=== PATIENT | female | born 1970 | race Two or more races ===

== ENCOUNTER 2017-02-07 08:57 | Inpatient (IN) | payer OTHER ==
[~2017-02-07] VITALS: Ht 154.9 cm; Wt 74.5 kg
[2017-02-07] MEDS ORDERED: ACETAMINOPHEN 325 MG TAB PO ONE ×2 (09:06→09:15)
[2017-02-07] MEDS ORDERED: PANTOPRAZOLE 40 MG/10 ML VIAL IV STA (11:06)
[2017-02-07] MEDS ORDERED: SODIUM CHLORIDE 0.9% 1,000 ML IVB ONE (11:06)
[2017-02-07 11:09] LABS: Basophils # (auto) 0 uL; Basophils % (auto) 0.2 % (0.0-2.0); Eosinophils # (auto) 0 uL; Hematocrit 39.7 % (36.0-46.0); Hemoglobin 13.4 g/dL (12.2-16.2); Lymphocytes # (auto) 0.4 uL; Lymphocytes % (auto) 3.8 % (10.0-50.0); Mean Corpuscular Hgb Conc. 33.8 g/dL (32.0-36.0); Mean Corpuscular Volume 91.9 fL (80.0-100.0); Mean Platelet Volume 9.4 fL (7.4-10.4); Monocytes # (auto) 0.7 uL; Monocytes % (auto) 5.7 % (0.0-12.0); Neutrophils # (auto) 10.5 uL; Neutrophils % (auto) 90.3 % (37.0-80.0); Platelet Count (auto) 214 10^3/uL (140-450); Red Cell Distribution Width 13.5 % (11.6-16.0); White Blood Cell 11.6 10^3/uL (4.4-10.8)
[2017-02-07] MEDS ORDERED: ALUM & MAG HYDROX-SIMETH LIQ(MAALOX) 30 ML PO ONE (11:15)
[2017-02-07] MEDS ORDERED: LIDOCAINE VISCOUS 2% 15ML UD PO ONE (11:15)
[2017-02-07] MEDS ORDERED: MORPHINE SULFATE 4 MG/ML SYRG IV ONE (11:15)
[2017-02-07] MEDS ORDERED: ONDANSETRON HCL 4 MG/2 ML VIAL IV ONE (11:15)
[2017-02-07] MEDS ORDERED: DONNATAL 5ml ORAL Elix (BELLADONNA ALK-PHENOBARB) PO ONE (11:15)
[2017-02-07 11:37] LABS: Albumin 3.4 g/dL (3.4-5.0); BUN/Creatinine Ratio 14.1; Bilirubin, Total 0.9 mg/dL (0.2-1.0); Calcium 8.9 mg/dL (8.5-10.1); Potassium 3.3 mmol/L (3.5-5.1); Total Protein 8.1 g/dL (6.4-8.2)
[2017-02-07 11:38] LABS: Amylase 40 U/L (25-115)
[2017-02-07] MEDS ORDERED: POTASSIUM CHL 10% (20 MEQ/15ML) 15ml ORAL SOLN PO ONE (12:30)
[2017-02-07] MEDS ORDERED: PIPERACILLIN-TAZOB 3.375GM 100 ML IV ONE (12:30)
[2017-02-07 13:42] LABS: Urine Bilirubin Negative (Negative); Urine Blood 2+ /uL (Negative); Urine Color Yellow (Yellow); Urine Glucose 4+ mg/dL (Normal); Urine Ketone 2+ (Negative); Urine Mucus FEW (None Seen); Urine Nitrite Negative (Negative); Urine RBC 9 /hpf (0 - 4); Urine Squamous Epithelial Cell FEW /hpf (<5); Urine Urobilinogen Normal (Negative)
[2017-02-07] MEDS ORDERED: PROMETHAZINE HCL 25 MG/ML 1ML IV PRN (14:00)
[2017-02-07] MEDS ORDERED: cefTRIAXone 1GM/50ML D5W 50 ML IV ONE (14:00)
[2017-02-07] MEDS ORDERED: DEXTROSE (50%) 50ML SYRG IV PRN (14:00)
[2017-02-07] MEDS ORDERED: MORPHINE SULF INJ 2 MG/ML SYRINGE 1ML IV PRN ×2 (14:00→14:15)
[2017-02-07] MEDS ORDERED: LORazepam 0.5 MG TAB PO PRN (14:00)
[2017-02-07] MEDS ORDERED: NITROGLYCERIN 0.4 MG SL TAB SL PRN (14:00)
[2017-02-07] MEDS ORDERED: TEMAZEPAM 15 MG CAP PO PRN (14:00)
[2017-02-07] MEDS: ENOXAPARIN SOD 40 MG/0.4 ML SYRINGE SC SCH (14:30)
[2017-02-07] MEDS: FAMOTIDINE (10MG/ML) 2ML VL IV SCH (14:30)
[2017-02-07] MEDS: SODIUM CHLORIDE 0.9% 1,000 ML IV SCH (14:30)
[2017-02-07] MEDS: ACCU-CHEK COMFORT CURVE STRIP VI SCH ×3 (15:56→23:47)
[2017-02-07] MEDS: InsuLIN REG 1unit/0.01ml Soln (100units/ml) SC SCH ×3 (16:03→23:48)
[2017-02-07] MEDS: ACETAMINOPHEN 500 MG TAB PO PRN ×2 (17:12→23:40)
[2017-02-07] MEDS ORDERED: INSLANTI SC (18:14)
[2017-02-07] MEDS ORDERED: METF-370 PO (18:14)
[2017-02-07] MEDS ORDERED: AMLO5TAB2 PO (18:20)
[2017-02-07] MEDS ORDERED: LOVA20TA4 PO (18:20)
[2017-02-07 19:00] VITALS: BP 119/55
[2017-02-07 20:00] VITALS: BP 119/55
[2017-02-08] MEDS: SODIUM CHLORIDE 0.9% 1,000 ML IV SCH ×3 (00:29→19:52)
[2017-02-08] MEDS: FAMOTIDINE (10MG/ML) 2ML VL IV SCH ×2 (01:43→14:27)
[2017-02-08] MEDS: InsuLIN REG 1unit/0.01ml Soln (100units/ml) SC SCH ×5 (04:00→19:52)
[2017-02-08] MEDS: ACCU-CHEK COMFORT CURVE STRIP VI SCH ×5 (04:00→19:52)
[2017-02-08 04:46] VITALS: BP 109/55
[2017-02-08 05:30] LABS: Basophils # (auto) 0 uL; Basophils % (auto) 0.3 % (0.0-2.0); CONDITION Y; Eosinophils # (auto) 0 uL; Eosinophils % (auto) 0.1 % (0.0-7.0); Hematocrit 34.4 % (36.0-46.0); Hemoglobin 11.4 g/dL (12.2-16.2); Lymphocytes # (auto) 1.1 uL; Lymphocytes % (auto) 10.2 % (10.0-50.0); Mean Corpuscular Hemoglobin 30.9 pg (28.0-32.0); Mean Corpuscular Hgb Conc. 33.3 g/dL (32.0-36.0); Mean Corpuscular Volume 92.8 fL (80.0-100.0); Mean Platelet Volume 9.9 fL (7.4-10.4); Monocytes # (auto) 0.7 uL; Monocytes % (auto) 6.6 % (0.0-12.0); Neutrophils # (auto) 8.5 uL; Neutrophils % (auto) 82.8 % (37.0-80.0); Platelet Count (auto) 212 10^3/uL (140-450); Red Cell Distribution Width 13.6 % (11.6-16.0); White Blood Cell 10.3 10^3/uL (4.4-10.8)
[2017-02-08 06:18] LABS: Albumin 2.6 g/dL (3.4-5.0); BUN/Creatinine Ratio 11.8; Bilirubin, Total 0.6 mg/dL (0.2-1.0); Potassium 3.5 mmol/L (3.5-5.1); Total Protein 6.9 g/dL (6.4-8.2)
[2017-02-08 06:20] LABS: Amylase 35 U/L (25-115); Cholesterol 89 mg/dL (< 200); HDL Cholesterol 39 mg/dL (40-59); LDL Cholesterol 49 mg/dL (< 100); Triglycerides 81 mg/dL (< 150)
[2017-02-08] MEDS ORDERED: cefTRIAXone 1GM/50ML D5W 50 ML IV SCH (09:00)
[2017-02-08 09:20] VITALS: BP 121/53
[2017-02-08] MEDS: ACETAMINOPHEN 500 MG TAB PO PRN (09:27)
[2017-02-08] MEDS: ENOXAPARIN SOD 40 MG/0.4 ML SYRINGE SC SCH (09:27)
[2017-02-08] MEDS ORDERED: VANCOMYCIN 1GM/250ML D5W 250 ML IV ONE (10:30)
[2017-02-08] MEDS ORDERED: PIPERACILLIN-TAZOB 3.375GM 100 ML IV ONE (10:30)
[2017-02-08] MEDS ORDERED: VANCOMYCIN PER PHARMACY 0 MG IV SCH (10:30)
[2017-02-08] MEDS ORDERED: VANCOMYCIN 1GM/250ML D5W 250 ML IV SCH (12:00)
[2017-02-08 12:03] VITALS: BP 131/73
[2017-02-08] MEDS: HYDROcodone-ACET 5/325MG TAB PO PRN ×2 (14:28→19:51)
[2017-02-08 16:42] VITALS: BP 111/73
[2017-02-08] MEDS: PIPERACILLIN-TAZOB 3.375GM 100 ML IV SCH ×2 (18:05→23:56)
[2017-02-08 19:30] VITALS: BP 123/68
[2017-02-08 21:31] VITALS: BP 123/68
[2017-02-09] VITALS (7 sets, daily range): BP systolic 11–147; BP diastolic 60–89
[2017-02-09] MEDS: ACCU-CHEK COMFORT CURVE STRIP VI SCH ×6 (00:03→19:42)
[2017-02-09] MEDS: FAMOTIDINE (10MG/ML) 2ML VL IV SCH (02:14)
[2017-02-09] MEDS: InsuLIN REG 1unit/0.01ml Soln (100units/ml) SC SCH ×6 (04:37→19:42)
[2017-02-09] MEDS: SODIUM CHLORIDE 0.9% 1,000 ML IV SCH ×2 (05:56→16:26)
[2017-02-09] MEDS: PIPERACILLIN-TAZOB 3.375GM 100 ML IV SCH ×3 (05:56→17:42)
[2017-02-09 09:53] LABS: Basophils # (auto) 0 uL; Basophils % (auto) 0.3 % (0.0-2.0); CONDITION Y; Eosinophils # (auto) 0 uL; Eosinophils % (auto) 0.7 % (0.0-7.0); Hematocrit 32.7 % (36.0-46.0); Hemoglobin 11.1 g/dL (12.2-16.2); Lymphocytes # (auto) 0.7 uL; Mean Corpuscular Hemoglobin 31.3 pg (28.0-32.0); Mean Corpuscular Volume 91.9 fL (80.0-100.0); Mean Platelet Volume 9.1 fL (7.4-10.4); Monocytes # (auto) 0.5 uL; Neutrophils # (auto) 5.2 uL; Platelet Count (auto) 240 10^3/uL (140-450); Red Cell Distribution Width 13.8 % (11.6-16.0); Reticulocyte Count 2.27 % (0.5-1.5); White Blood Cell 6.4 10^3/uL (4.4-10.8)
[2017-02-09 10:03] LABS: INR 0.97 (0.9-1.15); Partial Thromboplastin Time 32.7 sec (22.64-33.71); Prothrombin Time 10.6 sec (9.37-12.3)
[2017-02-09 10:16] LABS: Albumin 2.5 g/dL (3.4-5.0); BUN/Creatinine Ratio 10.2; Bilirubin, Total 0.5 mg/dL (0.2-1.0); Calcium 8.5 mg/dL (8.5-10.1); Potassium 3.4 mmol/L (3.5-5.1); Total Protein 6.8 g/dL (6.4-8.2)
[2017-02-09] MEDS: PANTOPRAZOLE 40 MG TAB PO SCH (10:50)
[2017-02-09] MEDS: ENOXAPARIN SOD 40 MG/0.4 ML SYRINGE SC SCH (10:51)
[2017-02-09] MEDS: HYDROcodone-ACET 5/325MG TAB PO PRN ×2 (11:00→17:42)
[2017-02-09] MEDS ORDERED: POTASSIUM CHL 20 Meq TABLET PO ONE (11:30)
[2017-02-09 15:38] LABS: Hematocrit 32.2 % (36.0-46.0); Hemoglobin 10.8 g/dL (12.2-16.2)
[2017-02-09 21:35] LABS: Hemoglobin 10.6 g/dL (12.2-16.2)
[2017-02-10] MEDS: InsuLIN REG 1unit/0.01ml Soln (100units/ml) SC SCH ×6 (00:37→22:00)
[2017-02-10] MEDS: ACCU-CHEK COMFORT CURVE STRIP VI SCH ×6 (00:37→22:00)
[2017-02-10] MEDS: PIPERACILLIN-TAZOB 3.375GM 100 ML IV SCH ×3 (00:37→11:26)
[2017-02-10] MEDS: SODIUM CHLORIDE 0.9% 1,000 ML IV SCH ×3 (01:57→14:28)
[2017-02-10 04:51] VITALS: BP 132/75
[2017-02-10 06:34] LABS: Basophils # (auto) 0 uL; Basophils % (auto) 0.3 % (0.0-2.0); Eosinophils # (auto) 0.1 uL; Eosinophils % (auto) 1.4 % (0.0-7.0); Hematocrit 33.2 % (36.0-46.0); Hemoglobin 11.3 g/dL (12.2-16.2); Lymphocytes # (auto) 0.9 uL; Lymphocytes % (auto) 16.2 % (10.0-50.0); Mean Corpuscular Hemoglobin 31.1 pg (28.0-32.0); Mean Corpuscular Hgb Conc. 34.1 g/dL (32.0-36.0); Mean Corpuscular Volume 91.3 fL (80.0-100.0); Mean Platelet Volume 8.9 fL (7.4-10.4); Monocytes # (auto) 0.5 uL; Monocytes % (auto) 8.6 % (0.0-12.0); Neutrophils # (auto) 4.1 uL; Neutrophils % (auto) 73.5 % (37.0-80.0); Nucleated Red Blood Cells % 0.1 %; Platelet Count (auto) 230 10^3/uL (140-450); Red Cell Distribution Width 13.2 % (11.6-16.0); White Blood Cell 5.6 10^3/uL (4.4-10.8)
[2017-02-10 07:20] LABS: Albumin 2.4 g/dL (3.4-5.0); BUN/Creatinine Ratio 5.8; Bilirubin, Total 0.5 mg/dL (0.2-1.0); Calcium 8.5 mg/dL (8.5-10.1); Potassium 3.2 mmol/L (3.5-5.1); Total Protein 6.7 g/dL (6.4-8.2)
[2017-02-10 08:00] VITALS: BP 132/75
[2017-02-10 09:00] VITALS: BP 146/85
[2017-02-10] MEDS: PANTOPRAZOLE 40 MG TAB PO SCH (11:25)
[2017-02-10] MEDS: ENOXAPARIN SOD 40 MG/0.4 ML SYRINGE SC SCH (11:25)
[2017-02-10] MEDS ORDERED: LEVOFLOXACIN 500MG 100 ML IV ONE (12:30)
[2017-02-10] MEDS ORDERED: DEXTROSE (50%) 50ML SYRG IV PRN (12:30)
[2017-02-10 12:54] VITALS: BP 162/95
[2017-02-10] MEDS ORDERED: POTASSIUM CHL 20 Meq TABLET PO ONE (13:45)
[2017-02-10] MEDS ORDERED: amLODIPine BESYLATE 5 MG TAB PO ONE (13:45)
[2017-02-10 17:00] VITALS: BP 132/71
[2017-02-10] MEDS: HYDROcodone-ACET 5/325MG TAB PO PRN (17:09)
[2017-02-10 21:44] VITALS: BP 134/71
[2017-02-11] MEDS: SODIUM CHLORIDE 0.9% 1,000 ML IV SCH ×2 (04:15→18:40)
[2017-02-11 05:00] VITALS: BP 125/68
[2017-02-11 05:51] LABS: BUN/Creatinine Ratio 8.5; Calcium 8.9 mg/dL (8.5-10.1); Magnesium 2.5 mg/dL (1.6-2.6); Potassium 3.9 mmol/L (3.5-5.1)
[2017-02-11] MEDS: INSULIN DETEMIR(LEVEMIR) 1unit/0.01ml Soln (100units/ml) SC SCH (06:32)
[2017-02-11] MEDS: InsuLIN REG 1unit/0.01ml Soln (100units/ml) SC SCH ×4 (06:32→21:45)
[2017-02-11] MEDS: ACCU-CHEK COMFORT CURVE STRIP VI SCH ×4 (06:33→21:45)
[2017-02-11 08:33] VITALS: BP 127/71
[2017-02-11] MEDS: LEVOFLOXACIN 500MG 100 ML IV SCH (09:51)
[2017-02-11] MEDS: PANTOPRAZOLE 40 MG TAB PO SCH (09:51)
[2017-02-11] MEDS: amLODIPine BESYLATE 5 MG TAB PO SCH (09:52)
[2017-02-11] MEDS: ENOXAPARIN SOD 40 MG/0.4 ML SYRINGE SC SCH (09:52)
[2017-02-11] MEDS: HYDROcodone-ACET 5/325MG TAB PO PRN ×2 (12:34→21:12)
[2017-02-11 12:35] VITALS: BP 127/81
[2017-02-11 16:34] VITALS: BP 128/77
[2017-02-11 20:00] VITALS: BP 138/75
[2017-02-11 22:00] VITALS: BP 138/75
[2017-02-12 05:00] VITALS: BP 92/60
[2017-02-12] MEDS: ACCU-CHEK COMFORT CURVE STRIP VI SCH ×4 (06:25→22:01)
[2017-02-12] MEDS: InsuLIN REG 1unit/0.01ml Soln (100units/ml) SC SCH ×4 (06:25→22:01)
[2017-02-12] MEDS: INSULIN DETEMIR(LEVEMIR) 1unit/0.01ml Soln (100units/ml) SC SCH (06:26)
[2017-02-12] MEDS: ENOXAPARIN SOD 40 MG/0.4 ML SYRINGE SC SCH (07:17)
[2017-02-12 08:32] VITALS: BP 132/70
[2017-02-12] MEDS: LEVOFLOXACIN 500MG 100 ML IV SCH (09:12)
[2017-02-12] MEDS: PANTOPRAZOLE 40 MG TAB PO SCH (09:12)
[2017-02-12] MEDS: SODIUM CHLORIDE 0.9% 1,000 ML IV SCH (09:13)
[2017-02-12] MEDS: HYDROcodone-ACET 5/325MG TAB PO PRN ×2 (09:13→20:10)
[2017-02-12] MEDS: amLODIPine BESYLATE 5 MG TAB PO SCH (09:13)
[2017-02-12 11:41] VITALS: BP 120/82
[2017-02-12] MEDS ORDERED: MIDAZOLAM HCL 1MG/1ML-2 ML VIAL ONE (13:33)
[2017-02-12] MEDS ORDERED: fentaNYL CITRATE 100 MCG/2 ML VL ONE (13:33)
[2017-02-12] MEDS ORDERED: MEPERIDINE HCL (50 MG/ML) 1 ML VIAL ONE (13:33)
[2017-02-12] MEDS ORDERED: ROCURONIUM 10MG/ML 10ML VIAL IV ONE (13:33)
[2017-02-12] MEDS ORDERED: PROPOFOL 10 MG/ML 20 ML IV ONE (13:33)
[2017-02-12] MEDS ORDERED: GLYCOPYRROLATE 0.2 MG/ML 1ML VIAL ONE (13:33)
[2017-02-12] MEDS ORDERED: KETOROLAC TROMETH 60MG/2ML VIAL IM ONE (13:33)
[2017-02-12] MEDS ORDERED: NEOSTIGMINE 1 MG/ML INJ (10mg/10ML VIAL) ONE (13:33)
[2017-02-12] MEDS ORDERED: SODIUM CHLORIDE LOCK 10 ML ONE (13:33)
[2017-02-12] MEDS ORDERED: METOCLOPRAMIDE HCL 5MG/ml INJ 2ml VIAL ONE (13:33)
[2017-02-12] MEDS ORDERED: METOCLOPRAMIDE HCL 5MG/ml INJ 2ml VIAL IV ONE (15:00)
[2017-02-12] MEDS ORDERED: ACCU-CHEK COMFORT CURVE STRIP VI ONE (15:00)
[2017-02-12] MEDS ORDERED: KETOROLAC TROMETH 30 MG/ML 1ML VIAL IV ONE (15:00)
[2017-02-12] MEDS ORDERED: HYDROmorphone HCL 2 MG/ML VL IV PRN (15:00)
[2017-02-12 16:15] VITALS: BP 133/77
[2017-02-12 16:17] VITALS: BP 133/77
[2017-02-12 21:38] VITALS: BP 116/60
[2017-02-13] MEDS: SODIUM CHLORIDE 0.9% 1,000 ML IV SCH ×2 (01:24→09:49)
[2017-02-13 05:00] VITALS: BP 122/63
[2017-02-13] MEDS: HYDROcodone-ACET 5/325MG TAB PO PRN ×2 (05:19→17:32)
[2017-02-13 06:00] VITALS: BP 126/68
[2017-02-13 06:02] LABS: Basophils # (auto) 0 uL; Basophils % (auto) 0.4 % (0.0-2.0); Eosinophils # (auto) 0.1 uL; Eosinophils % (auto) 1.4 % (0.0-7.0); Hematocrit 33.9 % (36.0-46.0); Hemoglobin 11.4 g/dL (12.2-16.2); Lymphocytes # (auto) 1.1 uL; Lymphocytes % (auto) 21.3 % (10.0-50.0); Mean Corpuscular Hemoglobin 30.9 pg (28.0-32.0); Mean Corpuscular Hgb Conc. 33.7 g/dL (32.0-36.0); Mean Corpuscular Volume 91.8 fL (80.0-100.0); Mean Platelet Volume 8.3 fL (6.9-10.8); Monocytes # (auto) 0.4 uL; Monocytes % (auto) 7.8 % (0.0-12.0); Neutrophils # (auto) 3.5 uL; Neutrophils % (auto) 69.1 % (37.0-80.0); Platelet Count (auto) 302 10^3/uL (140-450); Red Cell Distribution Width 13.3 % (11.8-14.3)
[2017-02-13] MEDS: INSULIN DETEMIR(LEVEMIR) 1unit/0.01ml Soln (100units/ml) SC SCH (06:25)
[2017-02-13] MEDS: InsuLIN REG 1unit/0.01ml Soln (100units/ml) SC SCH ×2 (06:25→11:48)
[2017-02-13] MEDS: ACCU-CHEK COMFORT CURVE STRIP VI SCH ×2 (06:25→11:47)
[2017-02-13 06:28] LABS: BUN/Creatinine Ratio 15.1; Calcium 8.5 mg/dL (8.5-10.1); Potassium 3.5 mmol/L (3.5-5.1)
[2017-02-13] MEDS: LEVOFLOXACIN 500MG 100 ML IV SCH (09:43)
[2017-02-13] MEDS: amLODIPine BESYLATE 5 MG TAB PO SCH (09:44)
[2017-02-13] MEDS: PANTOPRAZOLE 40 MG TAB PO SCH (09:44)
[2017-02-13] MEDS: ENOXAPARIN SOD 40 MG/0.4 ML SYRINGE SC SCH (09:45)
[2017-02-13 12:00] VITALS: BP 139/80
[2017-02-13 12:03] VITALS: BP 139/80
[2017-02-13] MEDS ORDERED: LEVO500T21 PO (13:34)
[2017-02-13 16:59] VITALS: BP 121/61
[2017-02-13 17:02] VITALS: BP 141/92
== END 2017-02-13 19:06 | disposition home or self-care (01) | DRG 854 ==
LOC: ER 08:57 → TELE 08:58 → TELE-WESTW 18:03
PROVIDERS: ADMIT Internal Medicine; ATTEND Internal Medicine
PROC: 0FT44ZZ Resection of Gallbladder, Percutaneous Endoscopic Approach (ICD-10-PCS; principal; 2017-02-12 13:37)
DX: A41.9 Sepsis, unspecified organism (principal); E87.1 Hypo-osmolality and hyponatremia; E11.65 Type 2 diabetes mellitus with hyperglycemia; K80.64 Calculus of gallbladder and bile duct with chronic cholecystitis without obstruction; N28.1 Cyst of kidney, acquired; I10 Essential (primary) hypertension; N39.0 Urinary tract infection, site not specified; N20.0 Calculus of kidney; E87.6 Hypokalemia; E78.5 Hyperlipidemia, unspecified; B96.1 Klebsiella pneumoniae [K. pneumoniae] as the cause of diseases classified elsewhere; E78.00 Pure hypercholesterolemia, unspecified; Z87.442 Personal history of urinary calculi; Z79.4 Long term (current) use of insulin
CPT/HCPCS: 36415; 71020; 74176; 76705; 76775; 80048; 80053; 80061; 81001; 82150; 82247; 82270; 82962; 83036; 83605; 83690; 83735; 84702; 85014; 85018; 85025; 85045; 85610; 85730; 86850; 86900; 86901; 87040; 87086; 87088; 87186; 96361; 96365; 96366; 96375; 99291; C9113; J0696; J1815; J1885; J1956; J2250; J2405; J2543; J2704; J3490